=== PATIENT | female | born 1995 | race Hispanic/Latino ===

== ENCOUNTER 2022-02-18 13:31 | Emergency (ER) | payer OTHER ==
[2022-02-18 13:49] LABS: Bilirubin Neg (Negative); Blood, Urine 150 (Negative); Clarity Cloudy (Clear); Glucose, Urine (Dipstick) >=1000 mg/dL (Negative); Ketone, Urine 5 mg/dL (Negative); Leukocyte 500 (Negative); Nitrite Positive (Negative); Protein, Urine (Dipstick) 100 mg/dl (Neg-Trace); Urobilinogen Normal mg/dL (Less than 2)
[2022-02-18 13:57] LABS: WBC/HPF 21-50 HPF (0-3)
[2022-02-18 13:58] LABS: Bacteria/HPF 2+ HPF (None Seen)
== END 2022-02-18 14:30 | disposition home or self-care (01) ==
LOC: CSHERS 13:31
DX: N39.0 Urinary tract infection, site not specified (principal)
CPT/HCPCS: 81003; 81015; 87077; 87086; 87186